=== PATIENT | female | born 1955 | race Caucasian/White ===

== ENCOUNTER 2017-07-09 16:38 | Emergency (ER) | payer MEDICAID ==
[~2017-07-09] VITALS: Ht 170.2 cm; Wt 66.0 kg
[2017-07-09 16:54] VITALS: BP 143/76
[2017-07-09] MEDS ORDERED: QUET100T4 PO (17:12)
[2017-07-09] MEDS ORDERED: GABA300C10 PO (17:12)
[2017-07-09] MEDS ORDERED: TRAZ100T15 PO (17:12)
[2017-07-09] MEDS ORDERED: LISI-170 PO (17:12)
[2017-07-09] MEDS ORDERED: ASPI-515 PO (17:12)
[2017-07-09] MEDS ORDERED: ASPIRIN 81 MG TABLET CHEW ONE (17:47)
[2017-07-09] MEDS ORDERED: ASPIRIN 81 MG TABLET CHEW PO ONE (18:00)
[2017-07-09 18:12] LABS: HEMOGLOBIN 16.5 g/dL (11.7-16.4)
[2017-07-09 18:24] LABS: BLOOD UREA NITROGEN 7 mg/dL (7-18)
[2017-07-09 18:29] LABS: ASPARTATE AMINO TRANSFERASE 20 U/L (15-37)
[2017-07-09 18:31] LABS: IS PT STATUS REG ER OR PRE ER? YES
== END 2017-07-09 19:07 | disposition left against medical advice (07) ==
LOC: ED 19:00
DX: R07.89 Other chest pain (principal); F10.120 Alcohol abuse with intoxication, uncomplicated; F41.9 Anxiety disorder, unspecified; E11.9 Type 2 diabetes mellitus without complications; I10 Essential (primary) hypertension; E78.5 Hyperlipidemia, unspecified; F31.9 Bipolar disorder, unspecified; F17.200 Nicotine dependence, unspecified, uncomplicated
CPT/HCPCS: 36415; 71010; 80053; 80307; 84484; 85025; 85610; 85730; 93005; 99285; G0479

== ENCOUNTER 2017-10-01 16:39 | Emergency (ER) | payer MEDICAID ==
[~2017-10-01] VITALS: Ht 167.6 cm; Wt 66.0 kg
[~2017-10-01 16:39] MED LIST: ASPI-515 PO; GABA300C10 PO; LISI-170 PO; QUET100T4 PO; TRAZ100T15 PO
[2017-10-01 18:33] LABS: SALICYLATE LEVEL 3.6 mg/dL (2.8-20.0)
[2017-10-01 18:35] LABS: ACETAMINOPHEN < 2 mcg/mL (10-30)
[2017-10-01 18:42] LABS: FREE T4 (FREE THYROXINE) 1.02 ng/dL (0.76-1.46); THYROID STIMULATING HORMONE 0.704 mIU/L (0.358-3.740)
[2017-10-01 19:14] LABS: MICROSCOPIC NOT IND
[2017-10-01 19:30] LABS: AMPHETAMINE SCREEN, URINE Negative (Negative); BARBITURATE SCREEN, URINE Negative (Negative); BENZODIAZEPINE SCREEN, URINE Negative (Negative); CANNABINOID SCREEN, URINE Negative (Negative); COCAINE SCREEN, URINE Negative (Negative); METHADONE SCREEN, URINE Negative (Negative); OPIATE SCREEN, URINE Negative (Negative)
[2017-10-02 04:39] VITALS: BP 136/79
== END 2017-10-02 04:46 | disposition home or self-care (01) ==
LOC: ED 19:51
DX: F31.9 Bipolar disorder, unspecified (principal); F10.220 Alcohol dependence with intoxication, uncomplicated; E11.9 Type 2 diabetes mellitus without complications; E78.5 Hyperlipidemia, unspecified; F41.9 Anxiety disorder, unspecified; I10 Essential (primary) hypertension; F17.210 Nicotine dependence, cigarettes, uncomplicated; Z88.0 Allergy status to penicillin
CPT/HCPCS: 36415; 80307; 80329; 81003; 84439; 84443; 93005; 99285; G0480

== ENCOUNTER 2018-04-03 10:09 | Inpatient (IN) | payer MEDICAID ==
[~2018-04-03] VITALS: Ht 167.6 cm; Wt 65.8 kg
[~2018-04-03 10:09] MED LIST changes: +TRAZ-137 PO; -TRAZ100T15 PO
[2018-04-03 10:59] LABS: BASOPHILS # (AUTO) 0.04 x10^3/uL (0-0.1); BASOPHILS % (AUTO) 0 % (0-1); EOSINOPHILS # (AUTO) 0.23 x10^3/uL (0-0.4); EOSINOPHILS % (AUTO) 2 % (1-7); LYMPHOCYTES # (AUTO) 1.74 x10^3/uL (1-3.4); LYMPHOCYTES % (AUTO) 17 % (22-44); MD NO; MEAN CORPUSCULAR HEMOGLOBIN 28.5 pg (27.0-34.8); MEAN CORPUSCULAR HGB CONC 32.7 g/dL (32.4-35.8); MEAN PLATELET VOLUME 8.6 fL (7.4-10.4); MONOCYTES # (AUTO) 0.69 x10^3/uL (0.2-0.8); MONOCYTES % (AUTO) 7 % (2-9); NEUTROPHILS # (AUTO) 7.83 x10^3/uL (1.8-6.8); NEUTROPHILS % (AUTO) 74 % (42-75); PLATELET COUNT 357 x10^3/uL (130-400); RED CELL DISTRIBUTION WIDTH 15.4 % (9.6-15.2)
[2018-04-03 11:11] LABS: INTERNATIONAL NORMALIZED RATIO 0.98 (0.93-1.1); PROTHROMBIN TIME 10.1 Seconds (9.6-11.5)
[2018-04-03 11:18] LABS: ANION GAP 3 mmol/L (5-15); CALCIUM 8.6 mg/dL (8.5-10.1); CHLORIDE 111 mmol/L (98-107); CREATININE 0.84 mg/dL (0.55-1.02)
[2018-04-03 12:58] VITALS: BP 142/73
[2018-04-03 14:15] VITALS: BP 142/73
[2018-04-03] MEDS ORDERED: POTASSIUM CHLORIDE 20 MEQ TAB.ER.PRT PO ONE (14:30)
[2018-04-03 15:02] LABS: HEMOGLOBIN A1C 5.7 % (4.2-6.3)
[2018-04-03] MEDS: SODIUM CHLORIDE 0.9% 1,000 ML IV SCH (15:48)
[2018-04-03] MEDS: NICOTINE 14MG/24 HR PATCH.TD24 TD SCH (15:51)
[2018-04-03] MEDS ORDERED: LORazepam 0.5MG TABLET PO ONE (16:00)
[2018-04-03] MEDS: ATORVASTATIN 40 MG TABLET PO SCH ×2 (20:25→21:00)
[2018-04-03 20:32] VITALS: BP 155/83
[2018-04-03] MEDS: GABAPENTIN 300 MG CAPSULE PO SCH (21:00)
[2018-04-03] MEDS: QUETIAPINE 100MG TABLET PO SCH (21:00)
[2018-04-04 02:30] VITALS: BP 148/74
[2018-04-04] MEDS: SODIUM CHLORIDE 0.9% 1,000 ML IV SCH ×3 (03:07→23:22)
[2018-04-04 05:07] LABS: BASOPHILS % (AUTO) 1 % (0-1); EOSINOPHILS # (AUTO) 0.38 x10^3/uL (0-0.4); EOSINOPHILS % (AUTO) 5 % (1-7); LYMPHOCYTES # (AUTO) 1.82 x10^3/uL (1-3.4); LYMPHOCYTES % (AUTO) 23 % (22-44); MD NO; MEAN CORPUSCULAR HEMOGLOBIN 28.3 pg (27.0-34.8); MEAN CORPUSCULAR HGB CONC 32.7 g/dL (32.4-35.8); MEAN CORPUSCULAR VOLUME 86.5 fL (80-100); MEAN PLATELET VOLUME 8.9 fL (7.4-10.4); MONOCYTES % (AUTO) 8 % (2-9); NEUTROPHILS # (AUTO) 5.02 x10^3/uL (1.8-6.8); NEUTROPHILS % (AUTO) 63 % (42-75); PLATELET COUNT 301 x10^3/uL (130-400); RED BLOOD COUNT 4.42 x10^6/uL (3.82-5.3); RED CELL DISTRIBUTION WIDTH 15.1 % (9.6-15.2)
[2018-04-04 05:18] LABS: ALBUMIN 2.9 g/dL (3.4-5.0); ANION GAP 5 mmol/L (5-15); CALCIUM 8.1 mg/dL (8.5-10.1); CHLORIDE 113 mmol/L (98-107)
[2018-04-04 05:24] LABS: ALANINE AMINOTRANSFERASE 20 U/L (12-78); ALKALINE PHOSPHATASE 62 U/L (45-117); BILIRUBIN,TOTAL 0.4 mg/dL (0.2-1.0); CHOL/HDL RATIO 2.5; CHOLESTEROL, TOTAL 117 mg/dL (140-239); CREATININE 0.98 mg/dL (0.55-1.02); HDL CHOL % 39 % (28-40); HDL CHOLESTEROL (DIRECT) 46 mg/dL (40-60); LDL CHOLESTEROL,CALCULATED 52 mg/dL (54-169); LDL/HDL RATIO 1.1 (0.5-3.0); TOTAL PROTEIN 5.6 g/dL (6.4-8.2); TRIGLYCERIDES 96 mg/dL (50-200); VLDL CHOLESTEROL 19 mg/dL (0-25)
[2018-04-04 06:58] VITALS: BP 142/70
[2018-04-04] MEDS ORDERED: ATOR40TA78 PO (08:39)
[2018-04-04] MEDS ORDERED: LITH300T3 PO (08:39)
[2018-04-04] MEDS ORDERED: CITA40TA12 PO (08:39)
[2018-04-04] MEDS: QUETIAPINE 100MG TABLET PO SCH ×2 (09:00→20:20)
[2018-04-04] MEDS: GABAPENTIN 300 MG CAPSULE PO SCH ×2 (09:50→20:20)
[2018-04-04] MEDS: ASPIRIN 81 MG TABLET EC PO SCH (09:50)
[2018-04-04 11:06] LABS: AMPHETAMINE SCREEN, URINE Negative (Negative); BARBITURATE SCREEN, URINE Negative (Negative); BENZODIAZEPINE SCREEN, URINE Negative (Negative); CANNABINOID SCREEN, URINE Negative (Negative); COCAINE SCREEN, URINE Negative (Negative); METHADONE SCREEN, URINE Negative (Negative); OPIATE SCREEN, URINE Negative (Negative)
[2018-04-04] MEDS: ACETAMINOPHEN 325 MG TABLET PO PRN ×2 (11:42→20:20)
[2018-04-04 12:35] VITALS: BP 145/64
[2018-04-04] MEDS ORDERED: IBUPROFEN 200 MG TABLET PO ONE (13:30)
[2018-04-04] MEDS: NICOTINE 14MG/24 HR PATCH.TD24 TD SCH (13:44)
[2018-04-04] MEDS: KETOROLAC 30 MG/1 ML IV PRN (18:17)
[2018-04-04] MEDS: ATORVASTATIN 40 MG TABLET PO SCH (20:20)
[2018-04-04 20:35] VITALS: BP 152/78
[2018-04-04 21:08] LABS: OCCULT BLOOD NEGATIVE (NEGATIVE)
[2018-04-04] MEDS ORDERED: IBUPROFEN 800 MG TABLET PO PRN (21:30)
[2018-04-04 21:38] LABS: STOOL FOR LEUKOCYTES NONE SEEN (NEGATIVE)
[2018-04-04] MEDS ORDERED: IBUPROFEN 200 MG TABLET ONE (22:47)
[2018-04-04] MEDS ORDERED: IBUPROFEN 600 MG TABLET ONE (22:47)
[2018-04-05 03:30] VITALS: BP 146/76
[2018-04-05 04:04] VITALS: BP 146/76
[2018-04-05 05:35] LABS: BASOPHILS # (AUTO) 0.04 x10^3/uL (0-0.1); BASOPHILS % (AUTO) 1 % (0-1); EOSINOPHILS # (AUTO) 0.38 x10^3/uL (0-0.4); EOSINOPHILS % (AUTO) 5 % (1-7); LYMPHOCYTES # (AUTO) 2.24 x10^3/uL (1-3.4); LYMPHOCYTES % (AUTO) 30 % (22-44); MD NO; MEAN CORPUSCULAR HEMOGLOBIN 29.2 pg (27.0-34.8); MEAN CORPUSCULAR HGB CONC 33.9 g/dL (32.4-35.8); MEAN CORPUSCULAR VOLUME 86.1 fL (80-100); MEAN PLATELET VOLUME 9.3 fL (7.4-10.4); MONOCYTES # (AUTO) 0.61 x10^3/uL (0.2-0.8); MONOCYTES % (AUTO) 8 % (2-9); NEUTROPHILS # (AUTO) 4.29 x10^3/uL (1.8-6.8); NEUTROPHILS % (AUTO) 57 % (42-75); PLATELET COUNT 262 x10^3/uL (130-400); RED BLOOD COUNT 4.04 x10^6/uL (3.82-5.3); RED CELL DISTRIBUTION WIDTH 15.2 % (9.6-15.2)
[2018-04-05 05:44] LABS: ALBUMIN 2.7 g/dL (3.4-5.0); CALCIUM 8.1 mg/dL (8.5-10.1); CHLORIDE 113 mmol/L (98-107)
[2018-04-05 05:47] LABS: ANION GAP 4 mmol/L (5-15); CREATININE 0.74 mg/dL (0.55-1.02)
[2018-04-05 06:43] VITALS: BP 137/76
[2018-04-05] MEDS: KETOROLAC 30 MG/1 ML IV PRN (08:13)
[2018-04-05] MEDS: SODIUM CHLORIDE 0.9% 1,000 ML IV SCH (08:30)
[2018-04-05] MEDS: QUETIAPINE 100MG TABLET PO SCH (09:00)
[2018-04-05] MEDS: ASPIRIN 81 MG TABLET EC PO SCH (09:37)
[2018-04-05] MEDS: GABAPENTIN 300 MG CAPSULE PO SCH (09:37)
== END 2018-04-05 12:49 | disposition home or self-care (01) | DRG 102 ==
LOC: ED 10:49 → EDIP 12:03 → 4EST 12:53
PROVIDERS: ADMIT Hospitalist; ATTEND Hospitalist
DX: G43.109 Migraine with aura, not intractable, without status migrainosus (principal); G93.5 Compression of brain; K92.1 Melena; G45.9 Transient cerebral ischemic attack, unspecified; E11.9 Type 2 diabetes mellitus without complications; E78.5 Hyperlipidemia, unspecified; E87.6 Hypokalemia; F17.210 Nicotine dependence, cigarettes, uncomplicated; F31.9 Bipolar disorder, unspecified; I10 Essential (primary) hypertension; K52.9 Noninfective gastroenteritis and colitis, unspecified; Z80.0 Family history of malignant neoplasm of digestive organs; Z82.49 Family history of ischemic heart disease and other diseases of the circulatory system; Z90.710 Acquired absence of both cervix and uterus
CPT/HCPCS: 36415; 70450; 70551; 80048; 80053; 80061; 80307; 82040; 82140; 82272; 83036; 83735; 84100; 84443; 85025; 85610; 85730; 87046; 87427; 89055; 93005; 93306; 93880; 99285; J1885; J7030

== ENCOUNTER → 2018-10-24 | Outpatient (CLI) | payer MEDICAID ==
[~2018-10-24] MED LIST changes: +ATOR40TA78 PO; +CITA40TA12 PO; +LITH300T3 PO
== END | disposition home or self-care (01) ==
LOC: EDSTATUS 10-08 15:00 → CFH 13:02
PROVIDERS: ATTEND Neurological Surgery
DX: M47.812 Spondylosis without myelopathy or radiculopathy, cervical region (principal); G93.5 Compression of brain; M48.02 Spinal stenosis, cervical region; I10 Essential (primary) hypertension; Z88.0 Allergy status to penicillin; Z86.2 Personal history of diseases of the blood and blood-forming organs and certain disorders involving the immune mechanism; Z87.891 Personal history of nicotine dependence; Z90.710 Acquired absence of both cervix and uterus
CPT/HCPCS: 70551; 72052; 72141

== ENCOUNTER 2019-01-04 17:56 | Emergency (ER) | payer MEDICAID ==
[~2019-01-04] VITALS: Ht 167.6 cm; Wt 56.0 kg
--- NOTE | 2019-01-04 18:12 | NUR ---
63 YR OLD FEMALE ARRIVED VIA EMS WITH C/O BLACK DIARRHEA X2 DAYS AND VOMITING FOR A COUPLE OF DAYS, "CANT KEEP ANYTHING DOWN, NOT EVEN MY MEDS" PT DENIES BLOOD IN EMESIS. PER REPORT PT WITH HX OF GI BLEED SEVERAL X'S, POLYPS AND ULCERS. TODAY DIARRHEA AND VOMITING GETTING WORSE. PT ARRIVES WITH PIV IN RIGHT AC.
--- NOTE | 2019-01-04 18:20 | NUR ---
DR VERA AT BEDSIDE TO [facility] PT
--- NOTE | 2019-01-04 18:42 | NUR ---
RECEIVED CALL FROM PTS DAUGHTER TICO SCHULZ [phone]. PER PT OK TO SPEAK WITH HER. UPDATED THAT PT HAS BEEN HERE APPROX 45 MIN AND TESTING IS IN PROCESS. SHE CAN CALL BACK IN A LITTLE WHILE. PHONE NUMBER WILL BE GIVEN TO PT.
[2019-01-04 18:51] LABS: INTERNATIONAL NORMALIZED RATIO 1.02 (0.93-1.1); PROTHROMBIN TIME 10.7 Seconds (9.6-11.5)
[2019-01-04 18:52] LABS: BASOPHILS # (AUTO) 0.05 x10^3/uL (0-0.1); BASOPHILS % (AUTO) 1 % (0-1); EOSINOPHILS # (AUTO) 0.17 x10^3/uL (0-0.4); EOSINOPHILS % (AUTO) 2 % (1-7); LYMPHOCYTES # (AUTO) 2.25 x10^3/uL (1-3.4); LYMPHOCYTES % (AUTO) 21 % (22-44); MD NO; MEAN CORPUSCULAR HEMOGLOBIN 29.4 pg (27.0-34.8); MEAN CORPUSCULAR HGB CONC 33.3 g/dL (32.4-35.8); MEAN CORPUSCULAR VOLUME 88.2 fL (80-100); MEAN PLATELET VOLUME 8.9 fL (7.4-10.4); MONOCYTES # (AUTO) 0.66 x10^3/uL (0.2-0.8); MONOCYTES % (AUTO) 6 % (2-9); NEUTROPHILS # (AUTO) 7.58 x10^3/uL (1.8-6.8); NEUTROPHILS % (AUTO) 71 % (42-75); PLATELET COUNT 358 x10^3/uL (130-400); RED BLOOD COUNT 5.28 x10^6/uL (3.82-5.3); RED CELL DISTRIBUTION WIDTH 14.5 % (9.6-15.2)
[2019-01-04 18:54] LABS: ALANINE AMINOTRANSFERASE 17 U/L (12-78); ALBUMIN 4.1 g/dL (3.4-5.0); ANION GAP 6 mmol/L (5-15); CALCIUM 9.6 mg/dL (8.5-10.1); CHLORIDE 108 mmol/L (98-107); CREATININE 0.97 mg/dL (0.55-1.02)
[2019-01-04 18:59] LABS: ALKALINE PHOSPHATASE 80 U/L (45-117); BILIRUBIN,TOTAL 0.4 mg/dL (0.2-1.0); TOTAL PROTEIN 7.2 g/dL (6.4-8.2); TROPONIN I < 0.015 ng/mL (0.000-0.045)
--- NOTE | 2019-01-04 19:13 | NUR ---
REPORT TO ESTER ROA
[2019-01-04] MEDS ORDERED: ONDANSETRON ODT 4 MG ONE (19:16)
[2019-01-04] MEDS ORDERED: ONDANSETRON ODT 4 MG PO ONE (19:30)
--- NOTE | 2019-01-04 19:31 | NUR ---
Pt medicated per oct. [facility]. Awaiting d/c instructions.
[2019-01-04 19:47] VITALS: BP 126/46
== END 2019-01-04 19:55 | disposition home or self-care (01) ==
LOC: ED 18:49
DX: R11.2 Nausea with vomiting, unspecified (principal); R19.7 Diarrhea, unspecified; R06.02 Shortness of breath; I10 Essential (primary) hypertension; E11.9 Type 2 diabetes mellitus without complications; F31.9 Bipolar disorder, unspecified; E78.5 Hyperlipidemia, unspecified; F17.200 Nicotine dependence, unspecified, uncomplicated; Z90.710 Acquired absence of both cervix and uterus; Z86.73 Personal history of transient ischemic attack (TIA), and cerebral infarction without residual deficits
CPT/HCPCS: 36415; 71045; 80053; 80307; 83690; 84484; 85025; 85610; 86850; 86900; 93005; 99284; Q0162